=== PATIENT | female | born 1940 | race Caucasian/White ===

== ENCOUNTER 2017-02-10 23:38 | Emergency (ER) | payer OTHER, MEDICARE ==
[2017-02-10 23:45] VITALS: PULSE 67; TEMP 97.9; BMI 27.2
--- NOTE | 2017-02-10 23:50 | PDOC ---
History of Present Illness - General Chief Complaint: Nasal Bleeding Stated Complaint: NOSE BLEED Time Seen by Provider: 02/10/17 23:40 History Source: Patient Exam Limitations: No Limitations - History of Present Illness Initial Comments: 02/10/17 23:50 This is a 76 yo F presenting to the ER with a complaint of nasal bleeding Patient states she awoke at approximately 11 AM, has a habit of blowing her nose forcefully. Since then she has noted intermittent nasal bleeding. She believes it's from both nares. She denies pain. She denies prior episodes like this. She denies trauma to her face or nose. She denies breathing particularly dry air. She has been pinching her nose and holding her forehead forward. She presents emergency department with a complaint of nasal bleeding She denies hematuria, hemetemesis, rectal bleeding Does bruise easily, which she attributed to thin skin Pr denies use of anticoagulants PMH: HLD, HTN, PSH: Meds: Lisinopril, Lipitor ALL: NKDA Social: Denies alcohol, drug, cigarette GENERAL/CONSTITUTIONAL: No: fever, chills, weakness, loss of appetite. HEAD, EYES, EARS, NOSE AND THROAT: Yes: nose bleed No: change in vision, ear pain, discharge, sore throat, throat swelling. HEMATOLOGIC/LYMPHATIC: No: anemia, easy bleeding, GENERAL: The patient is in no acute distress HEAD: Normal with no signs of trauma. EYES: PERRLA, EOMI, sclera anicteric, conjunctiva clear. ENT: Left nasal septum erythematous, no active bleeding noted. Right nasal septum, no bleeding noted. No blood noted in oropharynx SKIN: Warm, Dry, normal turgor, no rashes or lesions noted. 02/11/17 00:03 Past History - Past Medical History Allergies/Adverse Reactions: Allergies Allergy/AdvReac Type Severity Reaction Status Date / Time No Known Allergies Allergy Verified 02/10/17 23:40 Home Medications: Ambulatory Orders Lisinopril [Zestril] 0 mg PO DAILY 02/10/17 Simvastatin 0 mg PO HS 02/10/17 Medical Decision Making - Medical Decision Making 02/11/17 00:01 Pt given a bag of ice immediately upon ER arrival Upon my evaluation, no active bleeding Pt told that we would like to insert a Rhino Rocket given bleeding through out the day She has refused this, she does not want this in the nares as it is difficulty to breath and painful We have explained to patient the purpose of this would be to apply pressure to the area that is bleeding Pt states she still doesn't want this Pt asked to follow up with her ENT within 1 day return to the ER for recurrent bleeding 02/11/17 00:05 02/11/17 00:10 *DC/Admit/Observation/Transfer Diagnosis at time of Disposition: Epistaxis, recurrent - Discharge Dispostion Disposition: HOME Condition at time of disposition: Stable Admit: No - Referrals Referrals: Javon Benson [Primary Care Provider] - Adam Church MD [Staff Physician] - - Patient Instructions Printed Discharge Instructions: DI for Nosebleed Additional Instructions: [place]scar[place] Thank you for coming in to the ER today Please return to the ER for recurrent bleeding If your bleeding does not recur, I would recommend that you see an ENT specialist
[2017-02-11 00:15] VITALS: BP 152/76
== END 2017-02-11 00:15 | disposition home or self-care (01) ==
LOC: FER 23:38
DX: R04.0 Epistaxis (principal); I10 Essential (primary) hypertension; E78.5 Hyperlipidemia, unspecified
CPT/HCPCS: 99281-25